=== PATIENT | female | born 1990 | race Two or more races ===

== ENCOUNTER 2020-11-22 12:58 | Inpatient (IN) | payer SELFPAY ==
[~2020-11-22] VITALS: Ht 147.3 cm; Wt 66.0 kg
[2020-11-22 14:17] LABS: BILIRUBIN,URINE NEGATIVE (NEG); CLARITY,URINE CLOUDY; COLOR,URINE YELLOW; NITRITE,URINE NEGATIVE (NEG); PH,URINE 6.5 (<5.0-8.0); PROTEIN,URINE NEGATIVE (NEG-TRACE)
[2020-11-22 14:31] LABS: AMORPHOUS SEDIMENT,UR PRESENT /HPF; BACTERIA,URINE FEW /HPF (0-FEW); RBC,URINE 0 /HPF (0-2); WBC,URINE OCC /HPF (0-4)
--- NOTE | 2020-11-22 16:40 | PDOC1 ---
W[employer] H&P Date of Admission: Date of Admission: Nov 22, 2020 at 12:58 History of Present Illness: EDC: 12/09/20 LMP: 03/04/20 30y @ 37.4 by L=15 presents to L&D with ctxs. The pt was found to be 2 cm on presentation. She had progressed to 4-5 cm after some and time and was subsequently admitted. The pts has been complicated by Anti-A Ab. This is likely related to her being dxed with maternal hemolytic anemia during her 2nd in [place]. They were unable to determine the cause of the anemia. They performed genetic testing on other members of the family but it all returned neg. She was hospitalized from her first trimester until delivery. She received 17U of pRBC, Fe and steroids over the course of her . The blood was given over the entire course of the (2U/ month). At times s he was found to have Hgb of 3 and 4. She did not have a PPH. During this her initial antibody screen returned positive, but they could not identify any particular antibody. The pt was referred to [facility] 08/12. The discussed the potential difficulties in blood replacement due to this antibody. They informed her of the low risk of hemolytic disease in the . She has had anemia throughout the and her Hgb on most recent draw (11/20/20) was only 10.7 despite taking Fe. PMH: Anemia, Colitis PSH: Denies Meds: PNV, Fe BID All: NKDA OBHx: TSVD x 2 SH: no tob, no EtOH FH: noncontributory Allergies: Coded Allergies: No Known Drug Allergies (Unverified , 11/22/20) Physical Exam: PE: GENERAL: No apparent distress. Alert and oriented. HEENT: Head normocephalic, atraumatic. NECK: Supple LUNGS: Clear to auscultation. HEART: RRR, S1, S2 present, pulses intact ABDOMEN: Soft, positive bowel sounds. EXTREMITIES: No cyanosis or edema. NEUROLOGIC: Normal speech, normal tone PSYCHIATRIC: Normal affect, normal mood. SKIN: No ulceration. FHT: 120s +acels/no decels/mLTV D'Lo: 4-5 min SVE: 4-5/90/-3 Labs: Laboratory Tests Test 11/22/20 13:50 Urine Collection Type Unknown Urine Color Yellow Urine Clarity Cloudy Urine pH 6.5 (<5.0-8.0) Urine Specific [place] 1.020 (1.000-1.030) Urine Protein Negative mg/dL (NEG-TRACE) Urine Glucose (UA) Negative mg/dL (NEG) Urine Ketones (Stick) Negative mg/dL (NEG) Urine Blood Negative (NEG) Urine Nitrite Negative (NEG) Urine Bilirubin Negative (NEG) Urine Urobilinogen Dipstick 1.0 mg/dL (0.2 mg/dL) Urine Leukocyte Esterase Negative (NEG) Urine RBC 0 /HPF (0-2) Urine WBC Occ /HPF (0-4) Urine Squamous Epithelial Cells Few /LPF Urine Amorphous Sediment Present /HPF Urine Bacteria Few /HPF (0-FEW) Urine Mucus Marked /LPF Assessment & Plan: A/P 30y @ 37.4 by L=15 1.) Active labor 2.) Anti-A Ab s/p [facility] consult, pt aware of potential difficulties in blood replacement due to this antibody. Low risk of hemolytic anemia of the 3.) H/o transfusion - 17U pRBC with 2nd 4.) Anemia 5.) Rub NI 6.) TDAP given 10/02/20 7.) LSIL pap 8.) Fetus cat I FHT 9.) GBS neg 10.) DPS - [facility] consent signed 10/02/20 DEVI GARRIDO MD Nov 22, 2020 16:40
[2020-11-22] MEDS ORDERED: TERBUTALINE 1 MG/ML VIAL. SQ PRN (16:45)
[2020-11-22] MEDS ORDERED: 0.9 % SODIUM CHLORIDE 10 ML DISP.SYRIN. IV PRN ×2 (16:45→19:00)
[2020-11-22] MEDS ORDERED: BUTORPHANOL 2 MG/ML VIAL. IVP PRN ×2 (16:45)
[2020-11-22] MEDS ORDERED: LIDOCAINE 1% PF 30 ML VIAL. INJ PRN (16:45)
[2020-11-22] MEDS ORDERED: IV RINGERS,LACTATED 1000ML 1,000 ML IV SCH (16:45)
[2020-11-22] MEDS ORDERED: ACETAMINOPHEN 325 MG TABLET. PO PRN ×2 (16:45→19:00)
[2020-11-22] MEDS ORDERED: OXYTOCIN 30 UNIT/500 ML PREMIX 500 ML IV PRN ×3 (16:45→19:00)
[2020-11-22 17:13] LABS: BASO # 0.1 x10^3/uL (0.0-0.2); BASO % 1 % (0-3); EOS # 0.1 x10^3/uL (0.0-0.7); EOS % 1 % (0-3); HEMATOCRIT 35.5 % (36.0-47.0); HEMOGLOBIN 12.2 g/dL (12.0-15.5); LYMPH # 2.3 x10^3/uL (1.0-4.8); LYMPH % 26 % (24-48); MEAN CORPUSCULAR HEMOGLOBIN 35 pg (25-35); MEAN CORPUSCULAR HGB CONC 34 g/dL (31-37); MEAN CORPUSCULAR VOLUME 101 fL (79-100); MONO # 0.4 x10^3/uL (0.0-1.1); MONO % 5 % (0-9); NEUT % 67 % (31-73); PLATELET COUNT 271 x10^3/uL (140-400); RED BLOOD COUNT 3.53 x10^6/uL (3.50-5.40); RED CELL DISTRIBUTION WIDTH 13.9 % (11.5-14.5)
[2020-11-22 18:00] VITALS: BP 100/74
--- NOTE | 2020-11-22 18:50 | PDOC4 ---
VAGINAL DELIVERY DATE DATE: 11/22/20 TIME: 18:50 TIME Patient delivered a viable female over intact perineum at 1939. Wt 6 lb 4.7 oz. Apgars 8/9. Placenta delivered spontaneously, intact with 3VC. No lacerations noted. Good hemostasis noted. 20 U of Pit given with IVF. EBL 200 cc. WEIGHT Weight [ ] DEVI GARRIDO MD Nov 22, 2020 18:50
[2020-11-22] MEDS ORDERED: PHENYLEPH/MINERAL OIL/PETROLAT RECTAL OINTMENT TUBE. RC PRN (19:00)
[2020-11-22] MEDS ORDERED: MAGNESIUM HYDROXIDE 2,400 MG/30 ML ORAL.SUSP. PO PRN (19:00)
[2020-11-22] MEDS ORDERED: MMR per PROTOCOL. MC PRN (19:00)
[2020-11-22] MEDS ORDERED: HYDROCORTISONE 1% TOPICAL OINTMENT 30GM TUBE. TP PRN (19:00)
[2020-11-22] MEDS ORDERED: TDaP (Adacel) per PROTOCOL. MC PRN (19:00)
[2020-11-22] MEDS ORDERED: diphenhydrAMINE HCL 25 MG CAPSULE PO PRN (19:00)
[2020-11-22] MEDS ORDERED: ZOLPIDEM 5 MG TABLET. PO PRN (19:00)
[2020-11-22] MEDS ORDERED: BENZOCAINE 20% TOPICAL AEROSOL SPRAY 57GM CAN. TP PRN (19:00)
[2020-11-22] MEDS ORDERED: MAG HYDROX/ALUMINUM HYD/SIMETH 30 ML ORAL.SUSP PO PRN (19:00)
[2020-11-22] MEDS ORDERED: SIMETHICONE 80 MG TAB.CHEW PO PRN (19:00)
[2020-11-22] MEDS ORDERED: oxyCODONE/APAP 5/325 1 TAB TABLET PO PRN (19:00)
[2020-11-22] MEDS: IBUPROFEN 400 MG TABLET. PO PRN (20:37)
[2020-11-22 21:12] VITALS: BP 94/67
[2020-11-23 00:43] VITALS: BP 87/55
[2020-11-23 04:41] VITALS: BP 95/68
[2020-11-23] MEDS ORDERED: FERROUS SULFATE 325 MG TABLET. PO SCH (08:00)
[2020-11-23 08:25] VITALS: BP 101/68
[2020-11-23] MEDS: PRENATAL MULTIVITAMIN TABLET. PO SCH (08:25)
[2020-11-23] MEDS: DOCUSATE SODIUM 100 MG CAPSULE. PO PRN (08:25)
[2020-11-23] MEDS: IBUPROFEN 400 MG TABLET. PO PRN ×2 (08:27→16:28)
--- NOTE | 2020-11-23 11:19 | PDOC ---
[employer] PROGRESS NOTE Date of Service: DATE: 11/23/20 TIME: 11:18 Subjective: Pt with good pain control. [place] PO. Voiding. Minimal lochia Objective: Vital Signs: Vital Signs Date Time Temp Pulse Resp B/P (MAP) Pulse Ox O2 Delivery O2 Flow Rate FiO2 11/22/20 17:36 20 11/22/20 18:00 97.4 84 100/74 (83) 97.4 11/22/20 20:36 Room Air 11/23/20 00:43 98 Vital Signs Date Time Temp Pulse Resp B/P (MAP) Pulse Ox O2 Delivery O2 Flow Rate FiO2 11/23/20 08:25 99.2 81 16 101/68 (79) Room Air 99.2 11/23/20 04:41 99 Labs: Laboratory Tests Test 11/22/20 13:50 11/22/20 16:40 11/22/20 17:00 Urine Collection Type Unknown Urine Color Yellow Urine Clarity Cloudy Urine pH 6.5 (<5.0-8.0) Urine Specific [place] 1.020 (1.000-1.030) Urine Protein Negative mg/dL (NEG-TRACE) Urine Glucose (UA) Negative mg/dL (NEG) Urine Ketones (Stick) Negative mg/dL (NEG) Urine Blood Negative (NEG) Urine Nitrite Negative (NEG) Urine Bilirubin Negative (NEG) Urine Urobilinogen Dipstick 1.0 mg/dL (0.2 mg/dL) Urine Leukocyte Esterase Negative (NEG) Urine RBC 0 /HPF (0-2) Urine WBC Occ /HPF (0-4) Urine Squamous Epithelial Cells Few /LPF Urine Amorphous Sediment Present /HPF Urine Bacteria Few /HPF (0-FEW) Urine Mucus Marked /LPF White Blood Count 9.0 x10^3/uL (4.0-11.0) Red Blood Count 3.53 x10^6/uL (3.50-5.40) Hemoglobin 12.2 g/dL (12.0-15.5) Hematocrit 35.5 % (36.0-47.0) L Mean Corpuscular Volume 101 fL (79-100) H Mean Corpuscular Hemoglobin 35 pg (25-35) Mean Corpuscular Hemoglobin Concent 34 g/dL (31-37) Red Cell Distribution Width 13.9 % (11.5-14.5) Platelet Count 271 x10^3/uL (140-400) Neutrophils (%) (Auto) 67 % (31-73) Lymphocytes (%) (Auto) 26 % (24-48) Monocytes (%) (Auto) 5 % (0-9) Eosinophils (%) (Auto) 1 % (0-3) Basophils (%) (Auto) 1 % (0-3) Neutrophils # (Auto) 6.0 x10^3/uL (1.8-7.7) Lymphocytes # (Auto) 2.3 x10^3/uL (1.0-4.8) Monocytes # (Auto) 0.4 x10^3/uL (0.0-1.1) Eosinophils # (Auto) 0.1 x10^3/uL (0.0-0.7) Basophils # (Auto) 0.1 x10^3/uL (0.0-0.2) Treponema pallidum Antibody Nonreactive (Nonreactive) SARS-CoV-2 Antigen (Rapid) Negative (NEGATIVE) Laboratory Tests 11/22/20 16:40 Laboratory Tests 11/22/20 16:40 Physical Exam: GENERAL: No apparent distress. Alert and oriented. HEENT: Head normocephalic, atraumatic. NECK: Supple LUNGS: Clear to auscultation. HEART: RRR, S1, S2 present, pulses intact ABDOMEN: Soft, positive bowel sounds. EXTREMITIES: No cyanosis or edema. NEUROLOGIC: Normal speech, normal tone PSYCHIATRIC: Normal affect, normal mood. SKIN: No ulceration. FFNT below umb No C/C/E Assessment & Plan: A/P 30y PPD #1 s/p 1.) PP doing well 2.) Anti-A Ab 3.) H/o transfusion - 17U pRBC with 2nd 4.) Anemia Hgb 12.2 -> pending 5.) Rub NI 6.) TDAP given 10/02/20 7.) LSIL pap 8.) DPS decided a wk ago that she no longer wants a BTL 9.) Cont PP DEVI Veliz MD Nov 23, 2020 11:19
[2020-11-23 11:33] LABS: HEMATOCRIT 33.9 % (36.0-47.0); HEMOGLOBIN 11.4 g/dL (12.0-15.5); RED BLOOD COUNT 3.32 x10^6/uL (3.50-5.40); WHITE BLOOD COUNT 9.8 x10^3/uL (4.0-11.0)
[2020-11-23 11:50] VITALS: BP 81/65
--- NOTE | 2020-11-23 11:50 | NUR ---
Pt was offered a room with a window and declined
[2020-11-23 16:22] VITALS: BP 89/65
[2020-11-23 23:56] VITALS: BP 90/50
[2020-11-24 06:12] VITALS: BP 99/64
[2020-11-24] MEDS: IBUPROFEN 400 MG TABLET. PO PRN (06:18)
[2020-11-24] MEDS: PRENATAL MULTIVITAMIN TABLET. PO SCH (09:17)
[2020-11-24] MEDS: DOCUSATE SODIUM 100 MG CAPSULE. PO PRN (09:18)
[2020-11-24 09:29] VITALS: BP 97/66
[2020-11-24] MEDS ORDERED: IBUP-1060 PO (11:07)
[2020-11-24] MEDS ORDERED: DOCU-109 PO (11:07)
[2020-11-24] MEDS ORDERED: FERR325T14 PO (11:07)
--- NOTE | 2020-11-24 11:19 | PDOC ---
[employer] DEVELOPER PROGRESS NOTE Date of Service: DATE: 11/24/20 TIME: 11:19 Subjective: Pt with good pain control. [place] PO. Voiding. Minimal lochia Objective: Vital Signs: Vital Signs Date Time Temp Pulse Resp B/P (MAP) Pulse Ox O2 Delivery O2 Flow Rate FiO2 11/23/20 08:25 99.2 81 16 101/68 (79) Room Air 99.2 11/23/20 11:50 97 Vital Signs Date Time Temp Pulse Resp B/P (MAP) Pulse Ox O2 Delivery O2 Flow Rate FiO2 11/24/20 09:29 96.5 72 18 97/66 (76) 96.5 11/24/20 06:12 Room Air 11/23/20 23:56 97 Physical Exam: GENERAL: No apparent distress. Alert and oriented. HEENT: Head normocephalic, atraumatic. NECK: Supple LUNGS: Clear to auscultation. HEART: RRR, S1, S2 present, pulses intact ABDOMEN: Soft, positive bowel sounds. EXTREMITIES: No cyanosis or edema. NEUROLOGIC: Normal speech, normal tone PSYCHIATRIC: Normal affect, normal mood. SKIN: No ulceration. FFNT below umb No C/C/E Assessment & Plan: A/P 30y PPD #2 s/p 1.) PP doing well 2.) Anti-A Ab 3.) H/o transfusion - 17U pRBC with 2nd 4.) Anemia Hgb 12.2 -> pending 5.) Rub NI MMR prior to d/c 6.) TDAP given 10/02/20 7.) LSIL pap 8.) DPS decided a wk ago that she no longer wants a BTL 9.) D/C home DEVI GARRIDO MD Nov 24, 2020 11:19
[2020-11-24] MEDS ORDERED: MEASLES, MUMPS & RUBELLA VACC 0.5 ML VIAL. VAX SQ ONE (11:45)
[2020-11-24 11:55] VITALS: BP 97/58
--- NOTE | 2020-11-24 12:00 | NUR ---
Pt. dismissed ambulatory in stable condition with baby in car seat. Accompanied by FOB and nursing personnel.
--- NOTE | 2020-11-24 12:26 | DS ---
DATE OF DISCHARGE: 11/24/2020 ADMISSION DIAGNOSES: 1. Intrauterine at 37 weeks and 4 days by last menstrual period equal to a 15-week ultrasound. 2. Active labor. 3. Anti-A antibody. 4. History of transfusions. 5. Anemia. 6. Rubella nonimmune. 7. Status post Tdap. 8. Low-grade squamous intraepithelial lesion Pap. 9. Group B Streptococcus negative. 10. Desires permanent sterilization. DISCHARGE DIAGNOSES: 1. Intrauterine at 37 weeks 4 days by last menstrual period equal to a 15-week ultrasound. 2. Active labor. 3. Anti-A antibody. 4. History of transfusions. 5. Anemia. 6. Rubella nonimmune. 7. Status post Tdap. 8. Low-grade squamous intraepithelial lesion Pap. 9. Group B Streptococcus negative. 10. No longer wants tubal. PROCEDURE: Spontaneous vaginal delivery. BRIEF HOSPITAL COURSE: The patient is a 30-year-old 3, para 2-0-0-2 who presented to Labor and Delivery at 37 weeks and 4 days by LMP equal to a 15-week ultrasound with contractions. On presentation, the patient was 2 cm. After some time, the patient was rechecked and found to be 4-5 cm and subsequently admitted. The patient's was complicated by anti-A antibody where she was being seen by [facility]. The patient ultimately delivered by vaginal delivery. See delivery note for full detail. By day #2, the patient was meeting all discharge criteria and subsequently discharged home. Prior to discharge, the patient was given MMR vaccine. On admission, the patient's hemoglobin was found to be 12.2 and after delivery, was found to be 11.4. DISCHARGE INSTRUCTIONS: The patient was told not to lift anything greater than 20 pounds, have pelvic rest for 6 weeks, not to drive on narcotics. CALL IF: The patient will call if she had fevers, chills, nausea, vomiting, abdominal pain or any additional questions or concerns. FOLLOWUP APPOINTMENT: The patient was to follow up on 12/31/2020, at 2:00 p.m. for a visit. DISCHARGE MEDICATIONS: The patient was given a prescription for Motrin 800 mg, 30 pills; Colace 100 mg, 30 pills and ferrous sulfate 325 mg, 30 pills. COSTA/LORELEI/JIN DR: COSTA/desiree TID: [id number]
== END 2020-11-24 12:00 | disposition home or self-care (01) | DRG 807 ==
LOC: OBSVTOIN 12:58 → 3 SO LND 12:58
PROVIDERS: ADMIT Obstetrics & Gynecology; ATTEND Obstetrics & Gynecology
PROC: 10E0XZZ Delivery of Products of Conception, External Approach (ICD-10-PCS; principal; 2020-11-22)
DX: O36.1130 Maternal care for Anti-A sensitization, third trimester, not applicable or unspecified (principal); Z37.0 Single live birth; O99.02 Anemia complicating childbirth; Z3A.37 37 weeks gestation of pregnancy; D64.9 Anemia, unspecified; Z20.822 Contact with and (suspected) exposure to COVID-19; O34.43 Maternal care for other abnormalities of cervix, third trimester; N84.1 Polyp of cervix uteri
CPT/HCPCS: 36415; 81001; 85025; 85027; 86592; 86850; 86900; 86901; 87426; 90471; 90707; G0378; J0595; J2590; J7120; U0003; U0005